=== PATIENT | female | born 1970 | race Caucasian/White ===

== ENCOUNTER 2016-09-28 10:00 | Inpatient (IN) | payer OTHER ==
[~2016-09-28] VITALS: Ht 167.6 cm; Wt 69.1 kg
--- NOTE | ~2016-09-28 | OR ---
PATIENT'S NAME: VALENTINA PUTNAM [facility] AGE: 46 Y [address] ROOM: [place] [id number] LOCATION: [facility] ADMIT DATE: 10/10/2016 OR/Procedure Report DISCHARGE DATE: 10/11/2016 FAMILY PHYSICIAN: Vinh Hair MD ATTENDING PHYSICIAN: AILYN CARABALLO SURGEON: Ailyn Caraballo MD DIRECTOR INPATIENT HEADACHE PROGRAM: 1. AURELIA Echols. 2. Jimmie Buckley. DATE OF PROCEDURE: 10/10/2016 Corrected Post and Pre Operative diagnosis 10/23/16 AO PRE-OP DIAGNOSIS: Primary osteoarthritis right hip. POST-OP DIAGNOSIS: Primary osteoarthritis right hip. OPERATION: Right total hip arthroplasty. ANESTHESIA: Spinal anesthesia. ESTIMATED BLOOD LOSS: Approximately 200 mL. DRAIN: None. SPECIMEN: None. COMPLICATIONS: None. IMPLANTS: 1. A [place] Trident Titanium size 52 mm hemispherical uncemented acetabular shell with 1 dome hole cover and no screws. 2. [place]ie X3 neutral acetabular polyethylene liner with 32 mm inner diameter. 3. [place] size 4, standard offset, uncemented, femoral component. 4. A 32 mm diameter Biolox femoral head with +1 mm neck length. INDICATION FOR SURGERY: Valentina Putnam is a 46-year-old female, who presents with advanced right hip primary osteoarthritis and associated severely compromised activities of daily living. The patient has decided to proceed with hip replacement after having been thoroughly counseled regarding the associated risks, benefits, and limitations. We have specifically reviewed the risks and implications of infection, deep venous thrombosis, pulmonary embolism, mortality, neurovascular complications, blood transfusion (and associated potential for disease transmission or transfusion reaction), stiffness, instability, leg length discrepancy, mechanical deterioration of the components (due to wear and to loosening), and the potential need for revision. PATIENT'S NAME: VALENTINA PUTNAM [facility] AGE: 46 Y [address] ROOM: [address] [address] LOCATION: [facility] ADMIT DATE: 10/10/2016 OR/Procedure Report DISCHARGE DATE: 10/11/2016 FAMILY PHYSICIAN: Vinh Hair MD ATTENDING PHYSICIAN: AILYN CARABALLO DESCRIPTION OF PROCEDURE: The patient was positioned in a lateral decubitus position with the right side up after administration of anesthesia and prophylactic antibiotics. An axillary roll was placed and the non-operative leg was well padded. The pelvis was locked perpendicularly to the floor on a pegboard. The right hip and entire operative extremity were prepped and draped with vigilant sterile technique. The patient's name as well as the intended operative side and procedure were confirmed with a verbal time-out involving myself, the circulating nurse, the scrub nurse, and the anesthesiologist. The right hip was approached through a standard posterolateral incision. The fascia indigo and the gluteus dwayne fascia were sharply divided in line with the overlying skin incision. The sciatic nerve was identified and was vigilantly protected throughout the entire case. The short external rotators and posterior capsule were divided from their respective femoral insertions and tagged with four #1 Ethibond sutures for later repair. The hip was posteriorly dislocated with combined flexion, adduction, and internal rotation. The femoral neck osteotomy was performed with an oscillating saw. Inspection the femoral head demonstrated full-thickness loss of articular cartilage throughout its weightbearing surface. There was no femoral head collapse. Photographic documentation of the appearance of the femoral head was obtained. Circumferential acetabular exposure was obtained. Inspection of the acetabulum demonstrated full-thickness loss of articular cartilage at the anterosuperior quadrant of the acetabulum. There was a large effusion consisting of benign-appearing translucent synovial fluid. There was no dysplasia. There were no loose bodies. Remnants of the acetabular labrum were sharply thoroughly excised. The acetabulum was sequentially progressively reamed up to 49 mm with hemispherical power reamers. The final acetabular shell was impacted into position in 20 degrees of anteversion and 45 degrees of inclination. A excellent press-fit was obtained. No supplemental dome screw fixation was necessary. A neutral trial liner was inserted. Attention was next focused upon femoral preparation. The femoral canal initiator was utilized. The femoral canal was reamed by hand to a size two and subsequently on power to a size four with tapered conical reamers. The size four reamer tightly engaged the endosteal cortex of the proximal femur. The femoral canal was subsequently sequentially progressively broached up to a size 4. The size 4 broach obtained excellent axial and rotational stability. Trial reductions with the above specified construct yielded acceptable stability and acceptable reproduction of leg length and offset. All trial PATIENT'S NAME: VALENTINA PUTNAM [facility] AGE: 46 Y [address] ROOM: [address] [place], [place] [address] LOCATION: N ADMIT DATE: 10/10/2016 OR/Procedure Report DISCHARGE DATE: 10/11/2016 FAMILY PHYSICIAN: Vinh Hair MD ATTENDING PHYSICIAN: AILYN CARABALLO components were removed. The final acetabular liner was inserted with excellent circumferential visualization of its locking mechanism to assure adequate deployment. The final femoral component was impacted into position. The femoral component achieved excellent axial and rotational stability. The trunnion of the femoral component was vigilantly protected prior to placement of the femoral head. The trunnion of the femoral component was thoroughly cleaned and dried prior to placement of the femoral head. The incision was thoroughly irrigated with bacteriostatic pulsatile saline lavage multiple times throughout the case. The entire joint space was thoroughly inspected and thoroughly irrigated to assure that there was no residual debris of any sort. A final reduction was then performed. After final reduction, the hip could be firmly externally rotated in full extension and zero degrees of abduction without anterior subluxation. In neutral rotation and zero degrees of abduction, the hip could be firmly flexed to 120 degrees without instability. At 90 degrees of flexion and zero degrees abduction, the hip could be internally rotated to 65 degrees before there was any hint of posterior subluxation. The posterior capsule and short external rotators were repaired through two drill holes in the posterior aspect of the greater trochanter. The fascia indigo and gluteus dwayne fascia were closed with multiple simple and [id number] interrupted #1 Ethibond and #1 Vicryl sutures. Subcutaneous tissues were thoroughly re-irrigated with bacteriostatic pulsatile saline lavage. Subcutaneous tissues were re-approximated with simple buried interrupted #0 Vicryl sutures. The skin was closed with superficial buried interrupted 2-0 Vicryl sutures followed by a running subcuticular 3-0 Monocryl suture, followed by Octylseal, followed by Steri-Strips with benzoin, followed by an occlusive Mepilex dressing. There were no intra-operative complications. It should be noted that the physician's grants assistant played an active, integral role throughout this entire operation. By providing expert retraction, they greatly facilitated and expedited safe and effective exposure of the proximal femur and acetabulum for preparation and implantation of the components. They were also actively involved in the patient's positioning, prepping and draping, as well as wound closure. PATIENT'S NAME: VALENTINA PUTNAM [facility] AGE: 46 Y [address] ROOM: [address] [address] LOCATION: [facility] ADMIT DATE: 10/10/2016 OR/Procedure Report DISCHARGE DATE: 10/11/2016 FAMILY PHYSICIAN: Vinh Hair MD ATTENDING PHYSICIAN: AILYN CARABALLO MD MICHAEL VILLEGAS/modl /[id number] Corrected Post and Pre Operative diagnosis 10/23/16 AO d: 10/10/161736 t: 10/27/16 174, OPERATIVE SUMMARY
[2016-09-28] MEDS ORDERED: YAZ 28 TABLET1 EACH PO (10:34)
[2016-09-28] MEDS ORDERED: MACRODANTIN *IA50 MG PO (10:35)
[2016-09-28] MEDS ORDERED: KLONOPIN0.5 MG PO (10:36)
[2016-09-28] MEDS ORDERED: JUICE PLUS PO (10:37)
--- NOTE | 2016-10-10 15:00 | NUR ---
Introduced self/role to patient and mother. Reports has DME from previous OR. Mother will be available to help on discharge as needed. No concerns/needs voiced. Reviewed use of IS and encouraged at least 10 deep breaths/hr. Will follow and assist as needs identified.
--- NOTE | 2016-10-10 18:02 | NUR ---
Significant Event: From PACU at 1515. Dressing C/D/I. CSM-numb at knee. Room air. No void at this time. Valium 2.5mg and Tylenol 1000mg at 1644 and Toradol 15mg IVP at 1745. Family at bedside. Follow up:
--- NOTE | 2016-10-11 03:45 | NUR ---
Shift Summary: Patient is able to ambulate with almost normal gait and standby assist/walker. Voiding without difficulty. Tolerating regular diet well. Good pain relief with 2 dilaudid q 4hr. Plans to go home today.
--- NOTE | 2016-10-11 14:02 | NUR ---
Introduced self and CM role to patient. She stated that she has been through this before and she has all the equipment from that previous surgery to assist her at home. Pt's mother is going to be staying with her for a little while to help and assist in her recovery. No other needs or concerns at this time. Plan for home possible this afternoon as identified by the patient or tomorrow if not quite ready. CM creative services intern TH.
[2016-10-11] MEDS ORDERED: TYLENOL EXTRA500 MG PO (15:25)
[2016-10-11] MEDS ORDERED: NEURONTIN300 MG PO (15:26)
[2016-10-11] MEDS ORDERED: COLACE100 MG PO (15:26)
[2016-10-11] MEDS ORDERED: MIRALAX17 GM PO (15:27)
[2016-10-11] MEDS ORDERED: XARELTO10 MG PO (15:28)
[2016-10-11] MEDS ORDERED: VALIUM5 MG PO (15:36)
[2016-10-11] MEDS ORDERED: DILAUDID 4MG4 MG PO (15:39)
[2016-10-11] MEDS ORDERED: CELEBREX200 MG PO (15:40)
== END 2016-10-11 16:30 | disposition disaster alternative care site (69) | DRG 470 ==
LOC: G3N 10-10 08:00
PROVIDERS: ADMIT Orthopaedic Surgery
PROC: 0SR902A Replacement of Right Hip Joint with Metal on Polyethylene Synthetic Substitute, Uncemented, Open Approach (ICD-10-PCS; principal; 2016-10-10)
DX: M16.11 Unilateral primary osteoarthritis, right hip (principal); Z96.642 Presence of left artificial hip joint; F32.9 Major depressive disorder, single episode, unspecified; E03.9 Hypothyroidism, unspecified; F41.9 Anxiety disorder, unspecified
CPT/HCPCS: C1776; J0690; J1100; J1885; J2250; J2405; J2795; J7030